=== PATIENT | female | born 1990 | race African-American/Black ===

== ENCOUNTER 2019-01-09 10:38 | Emergency (ER) | payer MEDICAID ==
[~2019-01-09] VITALS: Ht 152.4 cm; Wt 61.2 kg
[2019-01-09 10:50] VITALS: BP 98/66
--- NOTE | 2019-01-09 11:00 | NUR ---
BIB SELF. AAO X4 C/O LOWER ABDOMINAL/PELVIC PAIN 8/10 X3 DAYS, [id number], +HEADACHE. PT STATES N/V, VOMITED X 2 TODAY. DENIES VAGINAL BLEEDING/DISCHARGE. AFEBRILE. PT STATES PRESSURE WHEN URINATING, BUT DENIES ANY BURNING SENSATION UPON URINATION. PT STATES THAT SHE WAS DIAGNOSED WITH UTI X 2 WEEKS AGO AND WAS PRESCRIBED ANTIBIOTICS FOR IT. HOB UP. BED SIDE RAILS UP X1. ON LOW BED POSITION, LOCKED. ER TO EVALUATE PT.
--- NOTE | 2019-01-09 11:22 | NUR ---
DR SINHA AT BEDSIDE FOR PT EVALUATION
--- NOTE | 2019-01-09 11:25 | NUR ---
URINE SPECIMEN SENT TO LAB
[2019-01-09 11:40] LABS: APPEARANCE,URINE HAZY (CLEAR); BILIRUBIN,URINE NEGATIVE (NEGATIVE); BLOOD, URINE 3+ (NEGATIVE); COLOR,URINE YELLOW (YELLOW); LEUKOCYTE ESTERASE ,URINE TRACE (NEGATIVE); NITRITE, URINE NEGATIVE (NEGATIVE); PH,URINE 6.5 (5.0-9.0); UGLUCOSE NEGATIVE (NEGATIVE)
--- NOTE | 2019-01-09 11:40 | NUR ---
ENGINEERING SYSTEMS ANALYST AT BEDSIDE
--- NOTE | 2019-01-09 11:49 | NUR ---
IV INITIATED ORDERED TO LAC 22 G. LAB DRAWN AND GIVEN TO CLINICAL ATHLETIC INSTRUCTOR. IV INTACT AND PATENT. PT TOLERATED WELL.
[2019-01-09 11:54] LABS: RBC,URINE 50-80 /HPF (0-5)
--- NOTE | 2019-01-09 11:55 | NUR ---
HEART TONES 168 BPM OBTAINED BY IMPLEMENTATION ARCHITECT
[2019-01-09 11:58] LABS: BASOPHILS % (AUTO) 0.4 % (0.0-2.0); EOSINOPHILS % (AUTO) 0.4 % (0.0-4.0); HEMATOCRIT 36.7 % (36-48); HEMOGLOBIN 11.8 g/dL (12.0-16.0); LYMPHOCYTES # (AUTO) 1.2 K/uL (2.5-16.5); LYMPHOCYTES % (AUTO) 16.3 % (20.5-51.1); MEAN CORPUSCULAR HEMOGLOBIN 25 pg (27-31); MEAN CORPUSCULAR HGB CONC 32 g/dL (33-37); MEAN CORPUSCULAR VOLUME 79.2 fL (80-94); MONOCYTES # (AUTO) 0.8 K/uL (0.8-1.0); MONOCYTES % (AUTO) 10.8 % (1.7-9.3); NEUTROPHILS # (AUTO) 5.3 K/uL (1.8-7.7); NEUTROPHILS % (AUTO) 72.1 % (42.2-75.2); PLATELET COUNT (AUTO) 316 K/uL (140-450); RED BLOOD CELL COUNT(AUTO) 4.64 MIL/uL (4.20-5.40); WHITE BLOOD COUNT (AUTO) 7.3 K/uL (4.8-10.8)
[2019-01-09 13:05] VITALS: BP 98/66
--- NOTE | 2019-01-09 13:08 | NUR ---
Patient discharged with v/s stable. Written and verbal after care instructions given and explained. Patient alert, oriented and verbalized understanding of instructions. Ambulatory with steady gait. All questions addressed prior to discharge. ID band removed. Patient advised to follow up with PMD. Rx of MACROBID & ZOFRAN given. Patient educated on indication of medication including possible reaction and side effects. Opportunity to ask questions provided and answered.
== END 2019-01-09 13:08 | disposition home or self-care (01) ==
LOC: MED 10:38
DX: O23.41 Unspecified infection of urinary tract in pregnancy, first trimester (principal); O21.8 Other vomiting complicating pregnancy; F17.200 Nicotine dependence, unspecified, uncomplicated; Z3A.10 10 weeks gestation of pregnancy; Z88.1 Allergy status to other antibiotic agents; Z88.0 Allergy status to penicillin; Z98.890 Other specified postprocedural states
CPT/HCPCS: 36415; 76817; 81001; 81025; 84702; 85025; 86900; 86901; 87086; 87186; 99284; Q0092